=== PATIENT | female | born 1980 | race Two or more races ===

== ENCOUNTER → 2024-04-02 | Emergency (ER) | payer MEDICAID, OTHER | END | disposition left against medical advice (07) | LOC: ER 18:40 | DX: R06.02 Shortness of breath (principal); Z53.21 Procedure and treatment not carried out due to patient leaving prior to being seen by health care provider ==

== ENCOUNTER 2024-05-29 11:54 | Inpatient (IN) | payer MEDICAID ==
[~2024-05-29] VITALS: Ht 162.6 cm; Wt 101.8 kg
--- NOTE | 2024-05-29 12:09 | ED.PDOC ---
History of Present Illness Chief Complaint: Eye Problem Comments pt has hyperthyroidism, and the last 4 days has been noticing her eyes are more prominent. she feels warm, has diarrhea, is restless. her doctor told her to take levothyroxin, which worsened her condition Time Seen by MD: 11:57 Reviewed Notes: Nurses Notes, Medications, Allergies Allergies: Coded Allergies: NO KNOWN ALLERGIES (Unverified , 05/29/24) Information Source: Patient Mode of Arrival: Ambulatory Severity: Moderate Timing: Days Duration: Since onset Prehospital treatment: Other (levothyroxine) Past Medical History PAST MEDICAL HISTORY: Asthma Past Medical History (Other): hyperthyroidism Surgical History: Denies all surgeries ASSISTANT NURSE MANAGER History: No Pertinent ASSISTANT NURSE MANAGER History Family History Family History: Reviewed,noncontributory to illness, No family hx of Cancer, No family hx of DM, No family hx of Heart jacqueline, No family hx of HTN, No family hx ofKidney jacqueline, No family hx of Liver jacqueline, No family hx of Lung jacqueline, No family hx of Stroke Constitutional: denies: chills, diaphoresis, fatigue, fever, malaise, sweats, weakness, others EENTM: reports: others (eyes prominent); denies: blurred vision, double vision, ear bleeding, ear discharge, ear drainage, ear pain, ear ringing, eye pain, eye redness, hearing loss, mouth pain, mouth swelling, nasal discharge, nose bleeding, nose congestion, nose pain, photophobia, tearing, throat pain, throat swelling, voice changes Respiratory: denies: cough, hemoptysis, orthopnea, SOB at rest, shortness of breath, SOB with excertion, stridor, wheezing, others Cardiovascular: reports: palpitations; denies: chest pain, dizzy spells, diaphoresis, Dyspnea on exertion, edema, irregular heart beat, left arm pain, lightheadedness, PND, syncope, others Gastrointestinal: reports: diarrhea; denies: abdomen distended, abdominal pain, blood streaked bowels, constipated, dysphagia, difficulty swallowing, hematemesis, melena, nausea, poor appetite, poor fluid intake, rectal bleeding, rectal pain, vomiting, others Genitourinary: denies: abnormal vagina bleeding, burning, dyspareunia, dysuria, flank pain, frequency, hematuria, incontinence, pain, , vagina discharge, urgency, others Neurological: denies: dizziness, fainting, headache, left sided numbness, left sided weakness, numbness, paresthesia, pre-existing deficit, right sided numbness, right sided weakness, seizure, speech problems, tingling, tremors, weakness, others Musculoskeletal: denies: back pain, gout, joint pain, joint swelling, muscle pain, muscle stiffness, neck pain, others Allergic/Immunocompromised: denies: Difficulty Healing, Frequent Infections, Hives, Itching, others Hematologic/Lymphatic: denies: anemia, blood clots, easy bleeding, easy bruising, swollen glands, others Endocrine: denies: excessive hunger, excessive sweating, excessive thirst, excessive urination, flushing, intolerance to cold, intolerance to heat, unexplained weight gain, unexplained weight loss, others Psychiatric: reports: anxiety; denies: bipolar disorder, depression, hopeless, panic disorder, schizophrenia, sleepless, suicidal, others All Other Systems: Reviewed and Negative Physical Exam General Appearance: No Apparent Distress, Normal, Other (anxious) HEENT: Normal ENT Inspection, Pharynx Normal, TMs Normal, Other (exophthalmosis) Neck: Full Range of Motion, Non-Tender, Normal, Normal Inspection Respiratory: Chest Non-Tender, Lungs Clear, No Accessory Muscle Use, No Respiratory Distress, Normal Breath Sounds Cardiovascular: No Edema, No JVD, No Murmur, No Gallop, Normal Peripheral Pulses, Tachycardia Breast Exam: Deferred Gastrointestinal: No Organomegaly, Non Tender, No Pulsatile Mass, Normal Bowel Sounds, Soft Genitalia: Deferred Pelvic: Deferred Rectal: Deferred Extremities: No calf tenderness, Normal capillary refill, Normal inspection, Normal range of motion, Non-tender, No pedal edema Musculoskeletal : Apperance: Normal Neurologic: Alert, seasonal delivery driver II-XII nml as Tested, No Motor Deficits, Normal Affect, Normal Mood, No Sensory Deficits Cerebellar Function: Normal Reflexes: Normal Skin: Dry, Normal Color, Warm Lymphatic: No Adenopathy Was a procedure done? Was a procedure done?: No Differential Dx Considerations may include: thyroid storm, anxiety, medication noncompliance, thyrotoxicosis, pheochromocytoma X-Ray, Labs, Meds, VS Vital Signs Date Time Temp Pulse Resp B/P (MAP) Pulse Ox O2 Delivery O2 Flow Rate FiO2 05/29/24 12:08 100 05/29/24 12:05 97.2 104 17 140/98 (112) 99 Lab Test 05/29/24 14:14 05/29/24 13:00 Range/Units Troponin I High Sensitivity Pending < 3 L </=34 ng/L White Blood Count 9.4 4.4-10.8 10^3/uL Red Blood Count 5.03 4.0-5.20 10^6/uL Hemoglobin 12.4 12.2-16.2 g/dL Hematocrit 37.6 36.0-46.0 % Mean Corpuscular Volume 74.8 L 80.0-100.0 fL Mean Corpuscular Hemoglobin 24.6 L 28.0-32.0 pg Mean Corpuscular Hemoglobin Concent 32.9 32.0-36.0 g/dL Red Cell Distribution Width 16.6 H 11.8-14.3 % Platelet Count 358 140-450 10^3/uL Mean Platelet Volume 8.3 6.9-10.8 fL Neutrophils (%) (Auto) 63.9 37.0-80.0 % Lymphocytes (%) (Auto) 14.7 10.0-50.0 % Monocytes (%) (Auto) 8.0 0.0-12.0 % Eosinophils (%) (Auto) 12.4 H 0.0-7.0 % Basophils (%) (Auto) 1.0 0.0-2.0 % Neutrophils # (Auto) 6.0 1.6-8.6 10 ^3/uL Lymphocytes # (Auto) 1.4 0.4-5.4 10 ^3/uL Monocytes # (Auto) 0.8 0-1.3 10 ^3/uL Eosinophils # (Auto) 1.2 H 0-0.8 10 ^3/uL Basophils # (Auto) 0.1 0-0.2 10 ^3/uL Nucleated Red Blood Cells 0.1 % Sodium Level 140 136-145 mmol/L Potassium Level 3.9 3.5-5.1 mmol/L Chloride Level 109 H 98-107 mmol/L Carbon Dioxide Level 23 20-31 mmol/L Anion Gap 8 5-15 Blood Urea Nitrogen 16 9-23 mg/dL Creatinine 1.04 H 0.550-1.02 mg/dL Glomerular Filtration Rate Calc 68 >90 mL/min BUN/Creatinine Ratio 15.4 10.0-20.0 Serum Glucose 147 H 74-106 mg/dL Calcium Level 9.7 8.7-10.4 mg/dL Total Bilirubin 0.2 0.2-1.0 mg/dL Aspartate Amino Transferase (AST) 19 13-40 U/L Alanine Aminotransferase (ALT) 23 7-40 U/L Alkaline Phosphatase 86 46-116 U/L Total Protein 7.1 5.7-8.2 g/dL Albumin 4.8 3.2-4.8 g/dL Thyroid Stimulating Hormone (TSH) 0.21 L 0.55-4.78 uIU/mL Free Thyroxine (T4) Calculated Pending Time of 1ST Reevaluation: 14:29 Reevaluation 1ST: Improved Patient Education/Counseling: Diagnosis, Treatment, Prognosis, Need For Follow Up Family Education/Counseling: Diagnosis, Treatment, Prognosis, Need For Follow Up Additional Information pt has symptoms of thyroid storm. she has underlying hyperthyroidism and reportedly is put on levothyroxin. this may have precipitated the exacerbation. she is improved on betablocker. i will add decadron. she has been given ivf support. she will need to be admitted for further treatments Departure 1 Departure Time of Disposition: 14:31 Impression: Primary Impression: Thyroid storm Qualified Codes: E05.91 - Thyrotoxicosis, unspecified with thyrotoxic crisis or storm Disposition: 09 ADMITTED INPATIENT Admit to: [facility] Condition: Serious Discharged With: Self Critical Care Note Critical Care Time?: Yes (1 hr-critical care time only) Critical care comment: due to concerns for deterioration of patient's condition, the care required my highest level of attention and readiness. i assessed the patient's condition, revieweed relavent documents, communicated with medical personnel, ordered the proper tests and treatments, reassed fro results and response to treatments, spoke to family and consultants and formulated a plan of care Stability Stability form required: SHAKILA Newman MD May 29, 2024 12:09
--- NOTE | 2024-05-29 12:52 | DVH ---
CHEST RADIOGRAPH Indication: palpitations Technique: Single frontal view of the chest was obtained COMPARISON: None FINDINGS: Lines and Tubes: None Lungs: Clear Pleura: No effusion. No pneumothorax. Cardiomediastinal contours: Unremarkable Bones: Unremarkable IMPRESSION: 1. No acute disease.
[2024-05-29 13:14] LABS: Basophils # (auto) 0.1 10 ^3/uL (0-0.2); Eosinophils # (auto) 1.2 10 ^3/uL (0-0.8); Monocytes # (auto) 0.8 10 ^3/uL (0-1.3); White Blood Cell 9.4 10^3/uL (4.4-10.8)
[2024-05-29 13:16] LABS: Eosinophils % (auto) 12.4 % (0.0-7.0); Hematocrit 37.6 % (36.0-46.0); Hemoglobin 12.4 g/dL (12.2-16.2); Lymphocytes # (auto) 1.4 10 ^3/uL (0.4-5.4); Lymphocytes % (auto) 14.7 % (10.0-50.0); Mean Corpuscular Hemoglobin 24.6 pg (28.0-32.0); Mean Corpuscular Hgb Conc. 32.9 g/dL (32.0-36.0); Mean Corpuscular Volume 74.8 fL (80.0-100.0); Neutrophils % (auto) 63.9 % (37.0-80.0); Nucleated Red Blood Cells % 0.1 %; Platelet Count (auto) 358 10^3/uL (140-450); Red Blood Cells 5.03 10^6/uL (4.0-5.20); Red Cell Distribution Width 16.6 % (11.8-14.3)
[2024-05-29 13:32] LABS: Alanine Aminotransferase 23 U/L (7-40); Alkaline Phosphatase 86 U/L (46-116); Anion Gap 8 (5-15); Aspartate Aminotransferase 19 U/L (13-40); BUN/Creatinine Ratio 15.4 (10.0-20.0); Blood Urea Nitrogen 16 mg/dL (9-23); Calcium 9.7 mg/dL (8.7-10.4); Carbon Dioxide 23 mmol/L (20-31); Potassium 3.9 mmol/L (3.5-5.1); Sodium 140 mmol/L (136-145)
[2024-05-29 13:33] LABS: Total Protein 7.1 g/dL (5.7-8.2)
[2024-05-29 13:44] LABS: Albumin 4.8 g/dL (3.2-4.8); Bilirubin, Total 0.2 mg/dL (0.2-1.0); Chloride 109 mmol/L (98-107); Glucose 147 mg/dL (74-106)
[2024-05-29] MEDS ORDERED: NITROGLYCERIN 0.4 MG SL TAB SL PRN (19:15)
[2024-05-29] MEDS ORDERED: MORPHINE SULFATE INJ 2 MG/ml SYRG IV PRN (19:15)
[2024-05-29 20:32] VITALS: BP 99/68; PULSE 99; RESP 18; TEMP 98.6; O2SAT 96
[2024-05-29 20:36] VITALS: O2SAT 96
[2024-05-29] MEDS: METOPROLOL TARTRATE 1MG/1ML-5ML VIAL IV ONE (20:48)
[2024-05-29] MEDS: SODIUM CHLORIDE 0.9% 1,000 ML IV ONE (20:57)
[2024-05-29] MEDS: DexAMETHasone SOD PHOS 4 MG/1ML SDV INJ IV ONE (20:57)
[2024-05-29 21:25] VITALS: PULSE 88
[2024-05-29 21:58] VITALS: BP 129/82; PULSE 76; RESP 18; TEMP 97.6; O2SAT 95
[2024-05-29] MEDS: MONTELUKAST SODIUM 10 MG TAB PO SCH (23:22)
[2024-05-29] MEDS: PROPRANOLOL HCL 20 MG TAB PO SCH (23:22)
[2024-05-29] MEDS: TEMAZEPAM 15 MG CAP PO PRN (23:23)
[2024-05-30] VITALS (12 sets, daily range): BP systolic 96–129; BP diastolic 45–82; PULSE 60–104; RESP 16–18; TEMP 97.5–98.2; O2SAT 91–100
--- NOTE | 2024-05-30 02:55 | DVHHP2 ---
History of Present Illness Reason for Visit: Possible hyperthyroid History of Present Illness 43-year-old female presents for evaluation of possible elevated thyroid. Patient reports having elevated thyroid levels approximately a month ago. She states that her provider told her to hold her levothyroxine for one day. Patient has been taking levothyroxine daily since then. Recently she started developing restlessness, insomnia, feeling warm all the time and jittery. Patient denies chest pain or shortness for breath. No other acute complaints reported. Past Medical History Asthma and hypothyroid Past Surgical History Denies Family History Noncontributory Smoke: No ALCOHOL: none Drugs: None Lives: with Family Review of Systems Review of Systems Review of systems are currently negative otherwise addressed in HPI. Allergies: Coded Allergies: NO KNOWN ALLERGIES (Unverified , 05/29/24) Medications Current Medications Medications Dose Ordered Sig/Ashlyn Route Start Time Stop Time Status Last Admin Dose Admin Propranolol HCl 40 mg BID PO 05/29/24 22:00 05/29/24 23:22 40 MG Sertraline HCl 50 mg DAILY PO 05/30/24 10:00 Montelukast Sodium 10 mg HS PO 05/29/24 22:00 05/29/24 23:22 10 MG Albuterol 2.5 mg Q6HPRN PRN NEB 05/29/24 19:15 Temazepam 15 mg QHSP PRN PO 05/29/24 19:15 05/29/24 23:23 15 MG Ondansetron HCl 4 mg Q4HP PRN IV 05/29/24 19:15 Acetaminophen 650 mg Q6HP PRN PO 05/29/24 19:15 Nitroglycerin 0.4 mg Q5MINP PRN SL 05/29/24 19:15 Morphine Sulfate 2 mg Q30M PRN IV 05/29/24 19:15 Exam Vital Signs Vital Signs Date Time Temp Pulse Resp B/P (MAP) Pulse Ox O2 Delivery O2 Flow Rate FiO2 05/30/24 01:00 98.2 75 18 112/77 (89) 94 98.2 05/29/24 21:58 Room Air* 0 21 Exam Gen: 43-year-old female in mild distress. Skin: Warm, dry, normal color and texture, no rash. HEENT: Normocephalic atraumatic, mucous membranes moist and pink. Neck: Cervical and supraclavicular nodes normal without enlargement, trachea is midline, thyroid gland is normal without masses. Pulmonary: Clear to auscultation and percussion bilaterally. Cardiac: Regular rate and rhythm. No murmur Abdomen: Soft, nontender, nondistended, bowel sounds present all 4 quadrants, no guarding, no rigidity, no organomegaly. Extremities: No cyanosis, clubbing, no edema Neuro: Cranial nerves II through XII grossly intact, normal affect and speech, no focal motor deficits. Labs/Xrays ORDERING PHYSICIAN: SHAKILA JOSEPH MD PROCEDURE(s): CXRP - CHEST PORTABLE REASON: palpitations ORDER NUMBER(s): [id number], ACCESSION NUMBER(s): [id number] CHEST RADIOGRAPH Indication: palpitations Technique: Single frontal view of the chest was obtained COMPARISON: None FINDINGS: Lines and Tubes: None Lungs: Clear Pleura: No effusion. No pneumothorax. Cardiomediastinal contours: Unremarkable Bones: Unremarkable IMPRESSION: 1. No acute disease. Labs Test 05/29/24 22:36 05/29/24 14:14 05/29/24 13:00 Range/Units Troponin I High Sensitivity < 3 L </=34 ng/L White Blood Count 9.4 4.4-10.8 10^3/uL Red Blood Count 5.03 4.0-5.20 10^6/uL Hemoglobin 12.4 12.2-16.2 g/dL Hematocrit 37.6 36.0-46.0 % Mean Corpuscular Volume 74.8 L 80.0-100.0 fL Mean Corpuscular Hemoglobin 24.6 L 28.0-32.0 pg Mean Corpuscular Hemoglobin Concent 32.9 32.0-36.0 g/dL Red Cell Distribution Width 16.6 H 11.8-14.3 % Platelet Count 358 140-450 10^3/uL Mean Platelet Volume 8.3 6.9-10.8 fL Neutrophils (%) (Auto) 63.9 37.0-80.0 % Lymphocytes (%) (Auto) 14.7 10.0-50.0 % Monocytes (%) (Auto) 8.0 0.0-12.0 % Eosinophils (%) (Auto) 12.4 H 0.0-7.0 % Basophils (%) (Auto) 1.0 0.0-2.0 % Neutrophils # (Auto) 6.0 1.6-8.6 10 ^3/uL Lymphocytes # (Auto) 1.4 0.4-5.4 10 ^3/uL Monocytes # (Auto) 0.8 0-1.3 10 ^3/uL Eosinophils # (Auto) 1.2 H 0-0.8 10 ^3/uL Basophils # (Auto) 0.1 0-0.2 10 ^3/uL Nucleated Red Blood Cells 0.1 % Sodium Level 140 136-145 mmol/L Potassium Level 3.9 3.5-5.1 mmol/L Chloride Level 109 H 98-107 mmol/L Carbon Dioxide Level 23 20-31 mmol/L Anion Gap 8 5-15 Blood Urea Nitrogen 16 9-23 mg/dL Creatinine 1.04 H 0.550-1.02 mg/dL Glomerular Filtration Rate Calc 68 >90 mL/min BUN/Creatinine Ratio 15.4 10.0-20.0 Serum Glucose 147 H 74-106 mg/dL Calcium Level 9.7 8.7-10.4 mg/dL Total Bilirubin 0.2 0.2-1.0 mg/dL Aspartate Amino Transferase (AST) 19 13-40 U/L Alanine Aminotransferase (ALT) 23 7-40 U/L Alkaline Phosphatase 86 46-116 U/L Total Protein 7.1 5.7-8.2 g/dL Albumin 4.8 3.2-4.8 g/dL Thyroid Stimulating Hormone (TSH) 0.21 L 0.55-4.78 uIU/mL Assessment/Plan Assessment/Plan Assessment Questionable thyroid storm Tachycardia secondary to the above Asthma Plan Admit the patient to telemetry to the hospitalist Endocrinology consultation Hold levothyroxine Thyroid panel pending Continue treatment per orders. Plan discussed with: Patient My Orders Orders - ROMEO JENSEN AGACNChristiana Procedure Category Date Status Time Thyroid Panel LAB 05/29/24 In Process 19:02 Propranolol Hcl PHA 05/29/24 In Process Tablet (Inderal 22:00 Sertraline Hcl PHA 05/30/24 In Process (Zoloft) 10:00 Montelukast Tablet PHA 05/29/24 In Process (Singulair Tablet) 22:00 Albuterol Medneb PHA 05/29/24 In Process (Ventolin Medneb) 19:15 Basic Metabolic Panel LAB 05/30/24 Logged 04:00 Admit ADMIT 05/29/24 Transmitted 19:02 Temazepam (Restoril) PHA 05/29/24 In Process 19:15 Ondansetron Hcl PHA 05/29/24 In Process (Zofran) 19:15 Condition: Fair YANELI 05/29/24 In Process 19:02 Acetaminophen Tablet PHA 05/29/24 In Process (Tylenol Tablet) 19:15 Bedrest With Bathroom YANELI 05/29/24 In Process Privileg 19:02 Nitroglycerin PHA 05/29/24 In Process Sublingual (Ntrostat 19:15 Morphine Sulfate PHA 05/29/24 In Process Injection 19:15 Stat Ekg For Chest [facility] 05/29/24 In Process Pain 19:02 Notify Md Of Changes [facility] 05/29/24 In Process From Base 19:02 Force Dispatcher For [facility] 05/29/24 In Process 24 Hours 19:02 Emergency Dysrhythmia [facility] 05/29/24 In Process Protocol 19:02 Rhythm Strips Once [facility] 05/29/24 In Process Every Shift 19:02 Oxygen By Nasal RT 05/29/24 Transmitted Cannula 19:02 * Endocrinology CONS 05/29/24 Transmitted Consult 19:02 Cardiac DIET 05/30/24 Transmitted Diet-2gna,Lofat,Lochol Breakfast Date of Service: May 29, 2024 Billing Provider: ROMEO JENSEN Common Visit Codes: [id number] INP/OBS CARE (HIGH) ROMEO JENSEN May 30, 2024 02:55
[2024-05-30] MEDS ORDERED: LEVO150T10 PO (03:58)
[2024-05-30] MEDS ORDERED: MONT-8 PO (03:58)
[2024-05-30] MEDS ORDERED: ALBU108A5 INH (03:58)
[2024-05-30] MEDS ORDERED: CETI-120 PO (03:58)
[2024-05-30] MEDS ORDERED: TURM500C3 OR (04:00)
[2024-05-30] MEDS ORDERED: MULT-1066 PO (04:00)
[2024-05-30] MEDS: ALBUTEROL SULF 2.5 MG/0.5ML(0.5%) NEB SOLN NEB PRN (05:54)
[2024-05-30] MEDS: ACETAMINOPHEN 325 MG TAB PO PRN (06:25)
[2024-05-30 07:03] LABS: Sodium 142 mmol/L (136-145)
[2024-05-30 07:04] LABS: Calcium 9.6 mg/dL (8.7-10.4); Carbon Dioxide 23 mmol/L (20-31)
[2024-05-30 07:09] LABS: Anion Gap 8 (5-15); BUN/Creatinine Ratio 12.1 (10.0-20.0); Blood Urea Nitrogen 11 mg/dL (9-23); Chloride 111 mmol/L (98-107); Glucose 133 mg/dL (74-106)
[2024-05-30] MEDS: SERTRALINE HCL 50 MG TAB PO SCH (09:19)
[2024-05-30] MEDS: ONDANSETRON HCL 4 MG/2 ML VIAL IV PRN (09:28)
--- NOTE | 2024-05-30 12:23 | DVHPN2 ---
Subjective Complains of anxiety and insomnia and headache Changes from previous H/P or p: Changes Objective Vitals Vital Signs Date Time Temp Pulse Resp B/P (MAP) Pulse Ox O2 Delivery O2 Flow Rate FiO2 05/30/24 09:19 76 129/82 05/30/24 07:25 97.6 05/30/24 07:12 18 95 05/30/24 05:55 Room Air 0.0 05/30/24 05:55 21 Intake/Output Intake and Output 05/30/24 07:00 Intake Total 400 ml Output Total 1 ml Balance 399 ml Intake Oral 400 ml Output Stool Total 1 ml # Voids 1 General Appearance: Alert, Oriented X3, Cooperative Lungs: Clear to auscultation, Normal air movement Cardiovascular: Regular rate, Normal S1 Abdomen: Normal bowel sounds, Soft, No tenderness Extremities: No edema Medications Current Medications Medications Dose Ordered Sig/Ashlyn Route Start Time Stop Time Status Last Admin Dose Admin Propranolol HCl 40 mg BID PO 05/29/24 22:00 05/30/24 09:19 40 MG Sertraline HCl 50 mg DAILY PO 05/30/24 10:00 05/30/24 09:19 50 MG Montelukast Sodium 10 mg HS PO 05/29/24 22:00 05/29/24 23:22 10 MG Albuterol 2.5 mg Q6HPRN PRN NEB 05/29/24 19:15 05/30/24 05:54 2.5 MG Temazepam 15 mg QHSP PRN PO 05/29/24 19:15 05/29/24 23:23 15 MG Ondansetron HCl 4 mg Q4HP PRN IV 05/29/24 19:15 05/30/24 09:28 4 MG Acetaminophen 650 mg Q6HP PRN PO 05/29/24 19:15 05/30/24 06:25 650 MG Nitroglycerin 0.4 mg Q5MINP PRN SL 05/29/24 19:15 Morphine Sulfate 2 mg Q30M PRN IV 05/29/24 19:15 Laboratory Results Laboratory Tests 05/29/24 13:00 05/30/24 05:40 Chemistry Test 05/29/24 13:00 05/30/24 05:40 Albumin 4.8 g/dL (3.2-4.8) Calcium Level 9.7 mg/dL (8.7-10.4) 9.6 mg/dL (8.7-10.4) Total Protein 7.1 g/dL (5.7-8.2) LFT Test 05/29/24 13:00 Alanine Aminotransferase (ALT) 23 U/L (7-40) Alkaline Phosphatase 86 U/L (46-116) Aspartate Amino Transferase (AST) 19 U/L (13-40) Total Bilirubin 0.2 mg/dL (0.2-1.0) HgA1c, TSH Test 05/29/24 13:00 Thyroid Stimulating Hormone (TSH) 0.21 uIU/mL (0.55-4.78) L Assessment/Plan Assessment/Plan Iatrogenic hyperthyroidism due to levothyroxine overdose Hypothyroidism Asthma Anxiety Insomnia Plan Hold levothyroxine Propranolol Sertraline Temazepam p.r.n. for insomnia Xanax for anxiety Med neb treatments and oxygen as needed Singulair Explained to the patient that we need to hold levothyroxine for now and lower the dose on discharge and then follow up as an outpatient Monitor the patient in the hospital 1 more day Full code Advance directives discussed for 18 minutes Plan discussed with: Patient Date of Service: May 30, 2024 Billing Provider: DEMIAN HUNT MD Common Visit Codes: [id number] INP/OBS CARE(HIGH) Secondary Visit Codes: [id number]-[id number] CARE PLAN 30 MINUTES DEMIAN HUNT MD May 30, 2024 12:23
--- NOTE | 2024-05-30 14:20 | ECG ---
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
--- NOTE | 2024-05-30 15:21 | DVHINCON2 ---
Date of service: May 30, [address] Dickey Reason for Consultation hyperthyroidism History of Present Illness 43 year old female with a history of hyperthyrodism s/p PERLA ablation c/b hypothyroidism on chronic thyroid hormone replacement therapy. Patient states over the past few weeks she has been experiencing intractable fatigue and lack of PO intake. Endorses some intermittent chills and tremulousness as well. Patient chronically tkes levothyroxine daily. Recently about 7-10 days prior to admission she had her dose of levothyroxine reduced to 1 tab 6x/week without significant improvement in symptoms. Notably patient had been enduring a bout of sinusitis in late 03/2024 to early 04/2024 from which she states she feels she is still recovering from. Past Medical History Problems Medical Problems: (1) Thyroid storm Status: Acute Past Surgical History Past Surgical History Medical Problems: (1) Thyroid storm Status: Acute Family History: Patient reports no known family medical history. Allergies: Coded Allergies: NO KNOWN ALLERGIES (Unverified , 05/29/24) Home Meds Reported Medications Multiple Vitamin (Multivitamin Adult) 1 Tab Tab, PO, TAB 05/30/24 Curcuma Longa (Turmeric) Extra (TURMERIC) 500 Mg Cap, OR, CAP 05/30/24 Albuterol Sulfate (Albuterol Sulfate Hfa) 108 Mcg/Act Aer, 1 PUFF INH Q4HPRN PRN for SHORTNESS OF BREATH 05/30/24 Levothyroxine Sodium (Levothyroxine Sodium) 150 Mcg Tab, 125 MCG PO DAILY 05/30/24 Montelukast Sodium (MONTELUKAST SODIUM) 10 Mg Tab, 1 TAB PO DAILY 05/30/24 Cetirizine HCl (Cetirizine Hydrochloride) 10 Mg Tab, 1 TAB PO DAILY 05/30/24 Current Medications Current Medications Medications (Trade) Dose Ordered Sig/Ashlyn Route PRN Reason Start Time Stop Time Status Last Admin Propranolol HCl (Inderal Tablet) 40 mg BID PO 05/29/24 22:00 05/30/24 09:19 Sertraline HCl (Zoloft) 50 mg DAILY PO 05/30/24 10:00 05/30/24 09:19 Montelukast Sodium (Singulair Tablet) 10 mg HS PO 05/29/24 22:00 05/29/24 23:22 Albuterol (Ventolin Medneb) 2.5 mg Q6HPRN PRN NEB SHORTNESS OF BREATH 05/29/24 19:15 05/30/24 05:54 Temazepam (Restoril) 15 mg QHSP PRN PO FOR INSOMNIA 05/29/24 19:15 05/29/24 23:23 Ondansetron HCl (Zofran) 4 mg Q4HP PRN IV NAUSEA / VOMITING 05/29/24 19:15 05/30/24 09:28 Acetaminophen (Tylenol Tablet) 650 mg Q6HP PRN PO PAIN SCALE 1-3 OR TEMP>100.4 05/29/24 19:15 05/30/24 06:25 Nitroglycerin (Ntrostat Sublingual) 0.4 mg Q5MINP PRN SL FOR CHEST PAIN 05/29/24 19:15 Morphine Sulfate 2 mg Q30M PRN IV FOR CHEST PAIN 05/29/24 19:15 Alprazolam (Xanax Tablet) 0.5 mg Q8HPRN PRN PO ANXIETY 05/30/24 12:15 Review of Systems Negative except that which is stated in HPI Vital Signs Vital Signs Date Time Temp Pulse Resp B/P (MAP) Pulse Ox O2 Delivery O2 Flow Rate FiO2 05/30/24 13:00 97.6 62 18 102/60 (74) 96 97.6 05/30/24 10:00 Room Air 0.0 05/30/24 10:00 21 Physical Exam Gen - no acute distress HEENT - exophthalmos, no conjunctival injection Thyroid - minimally palpable, nontender CV - RRR Resp - CTAB Abd - soft, nontender Labs/Diagnostic Data Labs Test 05/30/24 05:40 05/29/24 22:36 05/29/24 14:14 05/29/24 13:00 Range/Units Sodium Level 142 136-145 mmol/L Potassium Level 4.0 3.5-5.1 mmol/L Chloride Level 111 H 98-107 mmol/L Carbon Dioxide Level 23 20-31 mmol/L Anion Gap 8 5-15 Blood Urea Nitrogen 11 9-23 mg/dL Creatinine 0.91 0.550-1.02 mg/dL Glomerular Filtration Rate Calc 80 >90 mL/min BUN/Creatinine Ratio 12.1 10.0-20.0 Serum Glucose 133 H 74-106 mg/dL Calcium Level 9.6 8.7-10.4 mg/dL Troponin I High Sensitivity < 3 L </=34 ng/L White Blood Count 9.4 4.4-10.8 10^3/uL Red Blood Count 5.03 4.0-5.20 10^6/uL Hemoglobin 12.4 12.2-16.2 g/dL Hematocrit 37.6 36.0-46.0 % Mean Corpuscular Volume 74.8 L 80.0-100.0 fL Mean Corpuscular Hemoglobin 24.6 L 28.0-32.0 pg Mean Corpuscular Hemoglobin Concent 32.9 32.0-36.0 g/dL Red Cell Distribution Width 16.6 H 11.8-14.3 % Platelet Count 358 140-450 10^3/uL Mean Platelet Volume 8.3 6.9-10.8 fL Neutrophils (%) (Auto) 63.9 37.0-80.0 % Lymphocytes (%) (Auto) 14.7 10.0-50.0 % Monocytes (%) (Auto) 8.0 0.0-12.0 % Eosinophils (%) (Auto) 12.4 H 0.0-7.0 % Basophils (%) (Auto) 1.0 0.0-2.0 % Neutrophils # (Auto) 6.0 1.6-8.6 10 ^3/uL Lymphocytes # (Auto) 1.4 0.4-5.4 10 ^3/uL Monocytes # (Auto) 0.8 0-1.3 10 ^3/uL Eosinophils # (Auto) 1.2 H 0-0.8 10 ^3/uL Basophils # (Auto) 0.1 0-0.2 10 ^3/uL Nucleated Red Blood Cells 0.1 % Total Bilirubin 0.2 0.2-1.0 mg/dL Aspartate Amino Transferase (AST) 19 13-40 U/L Alanine Aminotransferase (ALT) 23 7-40 U/L Alkaline Phosphatase 86 46-116 U/L Total Protein 7.1 5.7-8.2 g/dL Albumin 4.8 3.2-4.8 g/dL Thyroid Stimulating Hormone (TSH) 0.21 L 0.55-4.78 uIU/mL Free Thyroxine (T4) Calculated 1.61 0.89-1.76 ng/dL Assessment # Postablative hypothyroidism # Tachycardia # Iatrogenic hyperthyroidism Reported history of hyperthyroidism diagnosed at age 14yo requiring PERLA therapy in [facility] now with biochemical and clinical evidence of hyperthyroidism in setting of iatrogenic excess levothyroxine dose. Some contribution of thyroiditis may be implicated here given recent sinusitis as well. - Continue propranolol - Follow up TRAb, TSI, FT4 - Hold levothyroxine. Will restart dosage based on lab results reviewed, tentatively can restart at 75mcg daily - Follow up in outpatient endocrinology clinic within 4 weeks Plan discussed with: Patient KYLIE RAHMAN MD May 30, 2024 15:21
[2024-05-30] MEDS: ALPRAZolam 0.5 MG TAB PO PRN (17:35)
[2024-05-31] VITALS (11 sets, daily range): BP systolic 99–108; BP diastolic 58–75; PULSE 56–80; RESP 15–16; TEMP 97.9–98.9; O2SAT 95–100
[2024-05-31 07:06] LABS: Thyrotropin Receptor Antibody <1.10 IU/L (0.00-1.75)
[2024-05-31 08:06] LABS: Free Thyroxine Index 3.6 (1.2-4.9); Thyroxine (T4) 12.4 ug/dL (4.5-12.0)
--- NOTE | 2024-05-31 10:45 | DVHPN2 ---
Progress Note - Dictate Date Seen: May 31, 2024 Medical Necessity Reason Pt with a Central, PICC or Fol: No Subjective NAEO. Still modest diffuse weakness however improving compared to admission. vital signs Vital Sign Date Time Temp Pulse Resp B/P (MAP) Pulse Ox O2 Delivery O2 Flow Rate FiO2 05/31/24 09:47 56 16 100 05/31/24 09:37 Room Air* 0 21 05/31/24 09:36 103/62 05/31/24 08:34 98.1 98.1 Total Intake and Output 05/30/24 05/30/24 05/31/24 15:00 23:00 07:00 Intake Total 834 ml 1600 ml Balance 834 ml 1600 ml medications Current Medications Medications Dose Ordered Sig/Ashlyn Route Start Time Stop Time Status Last Admin Dose Admin Propranolol HCl 40 mg BID PO 05/29/24 22:00 05/31/24 09:36 40 MG Sertraline HCl 50 mg DAILY PO 05/30/24 10:00 05/31/24 09:23 50 MG Montelukast Sodium 10 mg HS PO 05/29/24 22:00 05/30/24 22:40 10 MG Albuterol 2.5 mg Q6HPRN PRN NEB 05/29/24 19:15 05/31/24 09:37 2.5 MG Temazepam 15 mg QHSP PRN PO 05/29/24 19:15 05/30/24 22:40 15 MG Ondansetron HCl 4 mg Q4HP PRN IV 05/29/24 19:15 05/31/24 09:23 4 MG Acetaminophen 650 mg Q6HP PRN PO 05/29/24 19:15 05/30/24 06:25 650 MG Nitroglycerin 0.4 mg Q5MINP PRN SL 05/29/24 19:15 Morphine Sulfate 2 mg Q30M PRN IV 05/29/24 19:15 Alprazolam 0.5 mg Q8HPRN PRN PO 05/30/24 12:15 05/30/24 17:35 0.5 MG laboratory and microbiology Laboratory Tests 05/30/24 05:40 05/29/24 13:00 Test 05/30/24 05:40 Range/Units Serum Glucose 133 H 74-106 mg/dL Assessment/Plan # Postablative hypothyroidism # Tachycardia # Iatrogenic subclinical hyperthyroidism Reported history of hyperthyroidism diagnosed at age 14yo requiring PERLA therapy in [facility] now with biochemical and clinical evidence of hyperthyroidism in setting of iatrogenic excess levothyroxine dose. Some contribution of thyroiditis may be implicated here given recent sinusitis as well. TRAb negative. - Continue propranolol. Not required upon discharge. - Follow up TSI - Restart levothyroxine 75mcg daily - Follow up in outpatient endocrinology clinic within 1-2 weeks Plan discussed with: Patient KYLIE RAHMAN MD May 31, 2024 10:44
[2024-05-31] MEDS ORDERED: LEVO75TA6 PO (12:20)
--- NOTE | 2024-05-31 12:22 | DVHDS2 ---
Discharge Summary Date of Admission May 29, 2024 at 19:02 Date of Discharge: May 31, 2024 Labs/Diagnostic Data: Laboratory Results Test 05/30/24 05:40 05/29/24 22:36 05/29/24 14:14 05/29/24 13:00 Sodium Level 142 mmol/L (136-145) Potassium Level 4.0 mmol/L (3.5-5.1) Chloride Level 111 mmol/L (98-107) Carbon Dioxide Level 23 mmol/L (20-31) Anion Gap 8 (5-15) Blood Urea Nitrogen 11 mg/dL (9-23) Creatinine 0.91 mg/dL (0.550-1.02) Glomerular Filtration Rate Calc 80 mL/min (>90) BUN/Creatinine Ratio 12.1 (10.0-20.0) Serum Glucose 133 mg/dL (74-106) Calcium Level 9.6 mg/dL (8.7-10.4) Thyrotropin Receptor Antibody <1.10 IU/L (0.00-1.75) Troponin I High Sensitivity < 3 ng/L (</=34) White Blood Count 9.4 10^3/uL (4.4-10.8) Red Blood Count 5.03 10^6/uL (4.0-5.20) Hemoglobin 12.4 g/dL (12.2-16.2) Hematocrit 37.6 % (36.0-46.0) Mean Corpuscular Volume 74.8 fL (80.0-100.0) Mean Corpuscular Hemoglobin 24.6 pg (28.0-32.0) Mean Corpuscular Hemoglobin Concent 32.9 g/dL (32.0-36.0) Red Cell Distribution Width 16.6 % (11.8-14.3) Platelet Count 358 10^3/uL (140-450) Mean Platelet Volume 8.3 fL (6.9-10.8) Neutrophils (%) (Auto) 63.9 % (37.0-80.0) Lymphocytes (%) (Auto) 14.7 % (10.0-50.0) Monocytes (%) (Auto) 8.0 % (0.0-12.0) Eosinophils (%) (Auto) 12.4 % (0.0-7.0) Basophils (%) (Auto) 1.0 % (0.0-2.0) Neutrophils # (Auto) 6.0 10 ^3/uL (1.6-8.6) Lymphocytes # (Auto) 1.4 10 ^3/uL (0.4-5.4) Monocytes # (Auto) 0.8 10 ^3/uL (0-1.3) Eosinophils # (Auto) 1.2 10 ^3/uL (0-0.8) Basophils # (Auto) 0.1 10 ^3/uL (0-0.2) Nucleated Red Blood Cells 0.1 % Total Bilirubin 0.2 mg/dL (0.2-1.0) Aspartate Amino Transferase (AST) 19 U/L (13-40) Alanine Aminotransferase (ALT) 23 U/L (7-40) Alkaline Phosphatase 86 U/L (46-116) Total Protein 7.1 g/dL (5.7-8.2) Albumin 4.8 g/dL (3.2-4.8) Thyroid Stimulating Hormone (TSH) 0.21 uIU/mL (0.55-4.78) Free Thyroxine (T4) Calculated 1.61 ng/dL (0.89-1.76) Free Thyroxine Index 3.6 (1.2-4.9) Thyroxine (T4) 12.4 ug/dL (4.5-12.0) Triiodothyronine (T3) Uptake 29 % (24-39) Other Laboratory Tests 05/30/24 05:40 05/29/24 13:00 Brief Hx & Hospital Course: Final diagnoses: Iatrogenic hyperthyroidism due to levothyroxine overdose Hypothyroidism Asthma Anxiety Insomnia The patient was taking levothyroxine 125 mcg daily Here showed her TSH was low She was having anxiety and tachycardia Now she is feeling somewhat better Discharged home and lower the dose if levothyroxine to 75 mcg daily Follow up with the primary care physician soon as possible Condition at Discharge: Stable Final Diagnosis/Problems List 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 Patient was counseled about treatment plan, medications, possible side effects, patientverbalized understanding. All questions were answered to the best of my ability. 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
[2024-06-01 20:06] LABS: Thyroid Stimulating Immunoglob 0.29 IU/L (0.00-0.55)
== END 2024-05-31 14:28 | disposition home or self-care (01) | DRG 812 ==
LOC: ER 11:54 → TELE 19:02 → TELE-WESTW 21:18
PROVIDERS: ADMIT Nurse Practitioner; ATTEND Internal Medicine Geriatric Medicine
DX: T38.1X1A Poisoning by thyroid hormones and substitutes, accidental (unintentional), initial encounter (principal); E05.81 Other thyrotoxicosis with thyrotoxic crisis or storm; E03.8 Other specified hypothyroidism; G47.00 Insomnia, unspecified; J45.909 Unspecified asthma, uncomplicated; F41.9 Anxiety disorder, unspecified; Z79.899 Other long term (current) drug therapy; Y92.89 Other specified places as the place of occurrence of the external cause
CPT/HCPCS: 36415; 71045; 80048; 80053; 84439; 84443; 84445; 84484; 85025; 93005; 94640; 96361; 96374; 99291; G0378; J1100; J2405

== ENCOUNTER 2024-08-04 15:14 | Inpatient (IN) | payer MEDICAID ==
[~2024-08-04] VITALS: Ht 165.1 cm; Wt 65.0 kg
[~2024-08-04 15:14] MED LIST: ALBU108A5 INH; CETI-120 PO; LEVO75TA6 PO; MONT-8 PO; MULT-1066 PO; TURM500C3 OR
--- NOTE | 2024-08-04 16:18 | ED.PDOC ---
History of Present Illness HPI Comments 43-year-old female came to the ER stating that she has been having dizziness for the past three days. She feels the room is spinning. She is unable to ambulate without difficulty. She does complain of nausea in. Heart rate 99 with blood pressure 101/70 blood sugar 107. She thinks she has thyroid disorder. Denies any other symptoms. Chief Complaint: Dizziness Time Seen by MD: 15:16 Primary Care Provider: JOSIAH Andrews Notes: Nurses Notes, Medications, Allergies Allergies: Coded Allergies: NO KNOWN ALLERGIES (Unverified , 05/29/24) Home Meds Active Scripts Levothyroxine Sodium (Levothyroxine Sodium) 75 Mcg Tab, 1 TAB PO DAILY, #30 TAB 5 Refills Prov:DEMIAN HUNT MD 05/31/24 Reported Medications Multiple Vitamin (Multivitamin Adult) 1 Tab Tab, PO, TAB 05/30/24 Cur[place]uma [place] (Turmeric) Extra (TURMERIC) 500 Mg Cap, OR, CAP 05/30/24 Albuterol Sulfate (Albuterol Sulfate Hfa) 108 Mcg/Act Aer, 1 PUFF INH Q4HPRN PRN for SHORTNESS OF BREATH 05/30/24 Montelukast Sodium (MONTELUKAST SODIUM) 10 Mg Tab, 1 TAB PO DAILY 05/30/24 Cetirizine HCl (Cetirizine Hydrochloride) 10 Mg Tab, 1 TAB PO DAILY 05/30/24 Information Source: Patient Mode of Arrival: Ambulatory Severity: Moderate Timing: Days Duration: Since onset Past Medical History PAST MEDICAL HISTORY: Asthma Surgical History: Denies all surgeries OFFICE DIRECTOR History: No Pertinent OFFICE DIRECTOR History Family History Family History: Reviewed,noncontributory to illness, No family hx of Cancer, No family hx of DM, No family hx of Heart jacqueline, No family hx of HTN, No family hx ofKidney jacqueline, No family hx of Liver jacqueline, No family hx of Lung jacqueline, No family hx of Stroke Constitutional: denies: chills, diaphoresis, fatigue, fever, malaise, sweats, weakness, others EENTM: denies: blurred vision, double vision, ear bleeding, ear discharge, ear drainage, ear pain, ear ringing, eye pain, eye redness, hearing loss, mouth pain, mouth swelling, nasal discharge, nose bleeding, nose congestion, nose pain, photophobia, tearing, throat pain, throat swelling, voice changes, others Respiratory: denies: cough, hemoptysis, orthopnea, SOB at rest, shortness of breath, SOB with excertion, stridor, wheezing, others Cardiovascular: denies: chest pain, dizzy spells, diaphoresis, Dyspnea on exertion, edema, irregular heart beat, left arm pain, lightheadedness, palpitations, PND, syncope, others Gastrointestinal: reports: nausea; denies: abdomen distended, abdominal pain, blood streaked bowels, constipated, diarrhea, dysphagia, difficulty swallowing, hematemesis, melena, poor appetite, poor fluid intake, rectal bleeding, rectal pain, vomiting, others Genitourinary: denies: abnormal vagina bleeding, burning, dyspareunia, dysuria, flank pain, frequency, hematuria, incontinence, pain, , vagina discharge, urgency, others Neurological: reports: dizziness; denies: fainting, headache, left sided numbness, left sided weakness, numbness, paresthesia, pre-existing deficit, right sided numbness, right sided weakness, seizure, speech problems, tingling, tremors, weakness, others Musculoskeletal: denies: back pain, gout, joint pain, joint swelling, muscle pain, muscle stiffness, neck pain, others Integumetry: denies: bruises, change in color, change in hair/nails, dryness, laceration, lesions, lumps, rash, wounds, others Allergic/Immunocompromised: denies: Difficulty Healing, Frequent Infections, Hives, Itching, others Hematologic/Lymphatic: denies: anemia, blood clots, easy bleeding, easy bruising, swollen glands, others Endocrine: denies: excessive hunger, excessive sweating, excessive thirst, excessive urination, flushing, intolerance to cold, intolerance to heat, unexplained weight gain, unexplained weight loss, others Psychiatric: denies: anxiety, bipolar disorder, depression, hopeless, panic disorder, schizophrenia, sleepless, suicidal, others Physical Exam General Appearance: Moderate Distress HEENT: Normal ENT Inspection, Pharynx Normal, TMs Normal Neck: Full Range of Motion, Non-Tender, Normal, Normal Inspection Respiratory: Chest Non-Tender, Lungs Clear, No Accessory Muscle Use, No Respiratory Distress, Normal Breath Sounds Cardiovascular: No Edema, No JVD, No Murmur, No Gallop, Normal Peripheral Pulses, Regular Rate/Rhythm Breast Exam: Deferred Gastrointestinal: No Organomegaly, Non Tender, No Pulsatile Mass, Normal Bowel Sounds, Soft Genitalia: Deferred Pelvic: Deferred Rectal: Deferred Extremities: No calf tenderness, Normal capillary refill, Normal inspection, Normal range of motion, Non-tender, No pedal edema Musculoskeletal : Apperance: Normal Neurologic: Alert, bridge/structure inspection team leader II-XII nml as Tested, No Motor Deficits, Normal Affect, Normal Mood, No Sensory Deficits Cerebellar Function: NOT DONE Reflexes: NOT DONE Skin: Dry, Normal Color, Warm Peripheral Pulses: 3+ Radial (R), 3+ Radial (L) Lymphatic: No Adenopathy Was a procedure done? Was a procedure done?: No EKG EKG : Pulse Rate (adult): 99 [place]yer: Normal Cardiac Rhythm: NSR Differential Dx Considerations may include: Autonomic disorder Electrolyte imbalance X-Ray, Labs, Meds, VS Vital Signs Date Time Temp Pulse Resp B/P (MAP) Pulse Ox O2 Delivery O2 Flow Rate FiO2 08/04/24 15:45 97.8 95 18 101/70 (80) 98 97.8 08/04/24 15:35 99 Lab Test 08/04/24 15:30 Range/Units POC Glucose 102 70-106 mg/dl Patient alert. Complaining of dizziness. Vitals stable. Answering questions. Continues to have dizziness. EKG reviewed does not show any acute changes. Establish intravenous access. Was given fluids. Was given Ativan. CT of the head. Reviewed her history. Explained to the patient. Continue cardiac monitoring. Time of 1ST Reevaluation: 16:16 Reevaluation 1ST: Unchanged Patient Education/Counseling: Diagnosis, Treatment, Prognosis Family Education/Counseling: No Family Present Departure 1 Departure Time of Disposition: 16:17 Impression: Primary Impression: Autonomic disorder Disposition: 09 ADMITTED INPATIENT Admit to: Med Surg Condition: Guarded Critical Care Note Critical Care Time?: No Stability Stability form required: No Heart Score Heart Score: Heart Score Response (Comments) Value History Slightly Suspicious 0 EKG Normal 0 Age <45 0 Risk Factors No known risk factors 0 Troponin N/A [address] MD Aug 04, 2024 16:18
[2024-08-04 16:42] LABS: Basophils # (auto) 0.1 10 ^3/uL (0-0.2); Basophils % (auto) 0.8 % (0.0-2.0); Eosinophils # (auto) 0.5 10 ^3/uL (0-0.8); Eosinophils % (auto) 5.4 % (0.0-7.0); Hematocrit 37.3 % (36.0-46.0); Hemoglobin 12.2 g/dL (12.2-16.2); Lymphocytes # (auto) 2.1 10 ^3/uL (0.4-5.4); Lymphocytes % (auto) 21.4 % (10.0-50.0); Mean Corpuscular Hemoglobin 24.3 pg (28.0-32.0); Mean Corpuscular Hgb Conc. 32.6 g/dL (32.0-36.0); Mean Corpuscular Volume 74.3 fL (80.0-100.0); Monocytes # (auto) 0.7 10 ^3/uL (0-1.3); Neutrophils # (auto) 6.4 10 ^3/uL (1.6-8.6); Neutrophils % (auto) 65.4 % (37.0-80.0); Platelet Count (auto) 374 10^3/uL (140-450); Red Blood Cells 5.02 10^6/uL (4.0-5.20); Red Cell Distribution Width 16.8 % (11.8-14.3); White Blood Cell 9.9 10^3/uL (4.4-10.8)
[2024-08-04 16:49] LABS: Urine Bacteria FEW /hpf (None Seen); Urine Blood Negative /uL (Negative); Urine Clarity Clear (Clear); Urine Color Colorless (Yellow); Urine Protein, UAD Negative (Negative); Urine Specific Gravity 1.006 (1.001-1.035); Urine Squamous Epithelial Cell FEW /hpf (<5); Urine Urobilinogen Normal (Negative)
[2024-08-04 16:52] LABS: Chloride 104 mmol/L (98-107); Potassium 3.8 mmol/L (3.5-5.1); Sodium 138 mmol/L (136-145)
[2024-08-04 16:54] LABS: Anion Gap 9 (5-15); Calcium 9.6 mg/dL (8.7-10.4); Carbon Dioxide 25 mmol/L (20-31)
[2024-08-04 16:59] LABS: BUN/Creatinine Ratio 14.1 (10.0-20.0); Blood Urea Nitrogen 18 mg/dL (9-23)
[2024-08-04 17:02] LABS: Glucose 121 mg/dL (74-106)
[2024-08-04 17:26] LABS: Urine WBC < 1 /HPF (0-5)
--- NOTE | 2024-08-04 17:46 | DVH ---
CT brain without contrast CLINICAL INDICATION: Altered mental status FINDINGS: The study was performed in a multidetector scanner. This study performed taking axial image s from the skull base up to the vertex. Both brain and bone windows are photographed. Dose lowering techniques have been used including automated exposure control and adjustment of mA and /or KV according to patient size. Normal and symmetrical shape and density of brain parenchyma above and below the tentorium is seen. T here is no mass, midline shift or hydrocephalus. No intra/extra-axial collections demonstrated. There is no intracranial hemorrhage. The calvarium is intact. Mucocele in the left maxillary sinus IMPRESSION: 1. No acute intracranial pathology Computed Tomographic Radiation Dosimetry Report: Total CTDI vol = 50.0mGy Total DLP = 801.66mGy-cm Al l CT scans at this medical facility are performed using dose modulation techniques as appropriate to a performed exam including the following: Automated exposure control was utilized; adjustment of the MA and/or KvP according to patient size; and use of iterative reconstruction technique.
[2024-08-04] MEDS: SODIUM CHLORIDE 0.9% 1,000 ML IV ONE (18:11)
[2024-08-04] MEDS: LORazepam 2MG/ML-1ML VIAL IV ONE (18:15)
[2024-08-04] MEDS ORDERED: ONDANSETRON HCL 4 MG/2 ML VIAL IV PRN (18:30)
[2024-08-04] MEDS ORDERED: MORPHINE SULFATE INJ 2 MG/ml SYRG IV PRN (18:30)
[2024-08-04] MEDS ORDERED: NITROGLYCERIN 0.4 MG SL TAB SL PRN (18:30)
--- NOTE | 2024-08-04 18:32 | DVHHP2 ---
History of Present Illness Reason for Visit: dizziness History of Present Illness 43-year-old female with a medical history of asthma and hypothyroidism (on levothyroxine), with no prior surgical history, who presents with three days of dizziness, generalized weakness, and sinus pressure. She reports that her symptoms began gradually and have persisted despite rest. The patient states she was recently seen by her primary care provider for what was diagnosed as a sinus infection with associated facial swelling and pressure, and she was prescribed amoxicillin, which she has been taking for the past week. She now feels worse, reporting persistent sinus pressure, fatigue, dizziness, and malaise. She expresses concern that her thyroid levels may be off, although her last lab work three weeks ago was reportedly normal. She denies any visual changes, chest pain, shortness of breath, fever, or vomiting. She is compliant with her daily levothyroxine. On arrival to the ED, she was hemodynamically stable.Workup in the ED revealed: CBC: Unremarkable, CMP: Unremarkable except for creatinine 1 .28, UA: Trace bacteria nitrates, CT brain: Unremarkable, TSH: Pending, Chest X- ray: Ordered due to new-onset mild chest discomfort, CT sinuses: Ordered to evaluate for sinusitis Ativan was administered in the ED for anxiety-related symptoms, Given persistent symptoms, abnormal labs, and suspicion for acute sinusitis with systemic symptoms, the patient will be admitted for IV antib iotics and further evaluation. Past Medical History Asthma hypothyroidism Past Surgical History Denies surgical history Family History Reviewed, non-contributory to the management of this case. Past Social History The patient lives at home, denies smoking, alcohol or illicit drugs abuse. Review of Systems Constitutional: No: Fever, Chills, Sweats, Weakness, Malaise, Other Eyes: No: Pain, Vision change, Conjunctivae inflammation, Eyelid inflammation, Other, Redness ENT: Other (Sinus pain); No: Ear pain, Ear discharge, Nose pain, Nose discharge, Nose congestion, Mouth pain, Mouth swelling, Throat pain, Throat swelling Respiratory: No: Cough, Dry, Shortness of breath, SOB with excertion, Wheezing, Hemoptysis, Pleuritic Pain, Sputum, Wheezing, Other Cardiovascular: No: Chest Pain, Palpitations, Orthopnea, Paroxysmal Noc. Dyspnea, Edema, Lt Headedness, Other Gastrointestinal: No: Nausea, Vomiting, Abdominal Pain, Diarrhea, Constipation, Melena, Hematochezia, Other Genitourinary: No Dysuria, No Frequency, No Incontinence, No Hematuria, No Retention, No Other Musculoskeletal: No: other, neck pain, shoulder pain, arm pain, back pain, hand pain, leg pain, foot pain Skin: No: Rash, Lesions, Jaundice, Bruising, Other Neurological: Weakness, Other (Acute HEADACHE ); No: Numbness, Incoordination, Change in speech, Confusion, Seizures Allergies: Coded Allergies: NO KNOWN ALLERGIES (Unverified , 05/29/24) Exam Vital Signs Vital Signs Date Time Temp Pulse Resp B/P (MAP) Pulse Ox O2 Delivery O2 Flow Rate FiO2 08/04/24 18:03 99.4 99 16 118/84 (95) 96 99.4 08/04/24 18:03 Room Air General Appearance: Alert, Oriented X3, Cooperative, No acute distress HEENT: Atraumatic, PERRLA, EOMI, Mucous membr. moist/pink, Other (Mild bulging of the eye) Respiratory: Clear to auscultation, Normal air movement Cardiovascular: Regular rate, Normal S1, Normal S2, No murmurs Abdominal: Normal bowel sounds, Soft, No tenderness, No hepatospenomegaly Extremities: No clubbing, No cyanosis, No edema, Normal pulses, No tenderness/swelling Skin: No rashes, No breakdown, No significant lesion Neuro: Normal gait, Normal speech, Strength at 5/5 X4 ext, Normal tone, Sensation intact, Cranial nerves 3-12 NL Psych/Mental Status: Mental status NL, Mood NL Labs/Xrays CT scan of the brain unremarkable I reviewed labs, imaging CT scan abdomen pelvis, EKG and all diagnostic studies on this patient from ED records and the medical chart Labs Test 08/04/24 16:30 08/04/24 15:30 Range/Units White Blood Count 9.9 4.4-10.8 10^3/uL Red Blood Count 5.02 4.0-5.20 10^6/uL Hemoglobin 12.2 12.2-16.2 g/dL Hematocrit 37.3 36.0-46.0 % Mean Corpuscular Volume 74.3 L 80.0-100.0 fL Mean Corpuscular Hemoglobin 24.3 L 28.0-32.0 pg Mean Corpuscular Hemoglobin Concent 32.6 32.0-36.0 g/dL Red Cell Distribution Width 16.8 H 11.8-14.3 % Platelet Count 374 140-450 10^3/uL Mean Platelet Volume 7.8 6.9-10.8 fL Neutrophils (%) (Auto) 65.4 37.0-80.0 % Lymphocytes (%) (Auto) 21.4 10.0-50.0 % Monocytes (%) (Auto) 7.0 0.0-12.0 % Eosinophils (%) (Auto) 5.4 0.0-7.0 % Basophils (%) (Auto) 0.8 0.0-2.0 % Neutrophils # (Auto) 6.4 1.6-8.6 10 ^3/uL Lymphocytes # (Auto) 2.1 0.4-5.4 10 ^3/uL Monocytes # (Auto) 0.7 0-1.3 10 ^3/uL Eosinophils # (Auto) 0.5 0-0.8 10 ^3/uL Basophils # (Auto) 0.1 0-0.2 10 ^3/uL Nucleated Red Blood Cells 0.0 % Urine Color Colorless Yellow Urine Clarity Clear Clear Urine pH 5.0 5.0-9.0 Urine Specific [place] 1.006 1.001-1.035 Urine Protein Negative Negative Urine Ketones Negative Negative Urine Blood Negative Negative /uL Urine Nitrite Negative Negative Urine Bilirubin Negative Negative Urine Urobilinogen Normal Negative mg/dL Urine Leukocyte Esterase Negative Negative /uL Urine RBC <1 0 - 4 /hpf Urine Microscopic WBC < 1 0-5 /HPF Urine Squamous Epithelial Cells Few <5 /hpf Urine Bacteria Few H None Seen /hpf Urine Glucose Normal Normal mg/dL Sodium Level 138 136-145 mmol/L Potassium Level 3.8 3.5-5.1 mmol/L Chloride Level 104 98-107 mmol/L Carbon Dioxide Level 25 20-31 mmol/L Anion Gap 9 5-15 Blood Urea Nitrogen 18 9-23 mg/dL Creatinine 1.28 H 0.550-1.02 mg/dL Glomerular Filtration Rate Calc 53 >90 mL/min BUN/Creatinine Ratio 14.1 10.0-20.0 Serum Glucose 121 H 74-106 mg/dL Calcium Level 9.6 8.7-10.4 mg/dL POC Glucose 102 70-106 mg/dl Assessment/Plan Assessment/Plan 43-year-old female with history of asthma and hypothyroidism, presenting with dizziness, facial pressure, and malaise, likely secondary to acute sinusitis with possible early systemic involvement. acute sinus tenderness likely Acute bacterial sinusitis with facial pressure, dizziness, and fatigue was On amoxicillin x 7 days, without improvement Now with dizziness and generalized weakness Plan: Admit for IV antibiotic therapy ceftriaxone CT sinuses to assess for any abscess or deeper infection Symptom control with antipyretics, ordered morphine as needed for pain acute Dizziness likely multifactorial (viral illness vs. sinus-related vs. anxiety) Persistent over 3 days No focal neurologic findings CT brain normal Plan: Continue hydration and monitor vitals Vestibular suppressant meclizine Ativan PRN if anxiety-driven component persists chronic Hypothyroidism history of, on levothyroxine Concerned about thyroid imbalance Plan: TSH and free T4 ordered Continue home levothyroxine until lab results available Chest discomfort new, non-cardiac features No active chest pain, but mild pressure reported Denies SOB or radiation Plan: Chest X-ray ordered to Rule out lower respiratory involvement (e.g., asthma exacerbation or pneumonia) ordered trop and ECG and vitals ordered duoneb prn since with asthma Mildly elevated creatinine (1.28) Possibly due to dehydration Plan: Monitor renal function Maintain adequate hydration Avoid nephrotoxic meds fu crea in am fen/ppx diet ivf scd no dvt ppx since pt is ambulatory no gi ppx since no hx of gerds or gi bleed DISPOSITION Admit for IV antibiotic therapy and continued monitoring of dizziness and sinus infection symptoms. Monitor TSH, renal function, and symptom progression. Imaging pending to guide further management. Plan discussed with: Patient My Orders Orders - CARLOS SMITH DNP Procedure Category Date Status Time Sinus Without Contrast CT 08/04/24 Verified 18:26 Montelukast Tablet PHA 08/05/24 Verified (Singulair Tablet) 10:00 (Nf) Cetirizine Hcl PHA 08/05/24 Verified (Cetirizine Hydrochl 10:00 (Nf) Levothyroxine PHA 08/05/24 Verified Sodium 10:00 Thyroid Stimulating LAB 08/04/24 Verified Hormone 18:26 Meclizine Tablet PHA 08/04/24 Verified (Antivert Tablet) 18:30 Meclizine Tablet PHA 08/04/24 Verified (Antivert Tablet) 18:30 Chest Xray 1 View XY 08/04/24 Verified 18:26 Test, Urine LAB 08/04/24 Verified 18:26 Admit ADMIT 08/04/24 Verified 18:26 Allergies YANELI 08/04/24 Verified 18:26 Code Status CODE 08/04/24 Verified 18:26 0.9% Ns 1000 Ml PHA 08/04/24 Verified 18:30 Ondansetron Hcl PHA 08/04/24 Verified (Zofran) 18:30 Docusate Sodium PHA 08/04/24 Verified Capsule (Colace 18:30 Complete Blood Count LAB 08/05/24 Verified 04:00 Comprehensive LAB 08/05/24 Verified Metabolic Panel 04:00 Condition: Stable YANELI 08/04/24 Verified 18:26 BRP YANELI 08/04/24 Verified 18:26 Morphine Sulfate PHA 08/04/24 Verified Injection 18:30 Sequential YANELI 08/04/24 Verified Compression Device Nitroglycerin PHA 08/04/24 Verified Sublingual (Ntrostat 18:30 Stat Ekg For Chest YANELI 08/04/24 Verified Pain 18:26 Notify Md Of Changes YANELI 08/04/24 Verified From Base 18:26 Sustainability Analyst For YANELI 08/04/24 Verified 24 Hours 18:26 Emergency Dysrhythmia YANELI 08/04/24 Verified Protocol 18:26 Rhythm Strips Once YANELI 08/04/24 Verified Every Shift 18:26 Oxygen By Nasal RT 08/04/24 Verified Cannula 18:26 Ceftriaxone Ivpb PHA 08/05/24 Verified Rocephin 09:00 Ceftriaxone Ivpb PHA 08/04/24 Verified Rocephin 18:30 Date of Service: Aug 04, 2024 Billing Provider: CARLOS SMITH DNP Common Visit Codes: [id number] INP/OBS CARE (HIGH) CARLOS SMITH DNP Aug 04, 2024 18:32
[2024-08-04] MEDS: MECLIZINE HCL 25 MG TAB PO ONE (18:55)
[2024-08-04] MEDS: cefTRIAXone 1GM/50ML D5W 50 ML IV ONE (18:57)
--- NOTE | 2024-08-04 20:02 | DVH ---
CHEST RADIOGRAPH Indication: sob Technique: Single frontal view of the chest was obtained Comparison: XY CHEST PORTABLE on DOS: 05/29/24 FINDINGS: Lines and Tubes: None Lungs: No focal consolidation. Pleura: No effusion. No pneumothorax. Cardiomediastinal contours: Unremarkable Bones: No acute osseous abnormality. IMPRESSION: 1. No acute cardiopulmonary disease.
--- NOTE | 2024-08-04 20:11 | DVH ---
INDICATION: acute sinus pain EXAM DATE: 08/04/2024 07:30 PM COMPARISON: None TECHNIQUE: CT of the sinuses without intravenous contrast. RADIATION DOSE: CTDIvol: 66.38 mGy, DLP: 920.26 mGy*cm FINDINGS: There is a mucus retention cyst in left maxillary sinus. Right maxillary sinus is clear. Frontal sinu ses are clear. Ethmoid air cells are clear. Sphenoid sinuses are clear. Ostiomeatal complexes are pat ent bilaterally. Cribriform plate and lamina papyracea are intact. Orbits appear unremarkable. Visual ized paranasal sinuses and mastoid air cells are clear. Visualized brain appears unremarkable. Soft tissues and osseous structures are unremarkable. IMPRESSION: Mucus retention cyst in left maxillary sinus. Otherwise unremarkable study.
[2024-08-04 20:23] VITALS: PULSE 90; RESP 16; O2SAT 98
[2024-08-04] MEDS: IPRATROPIUM BROM 0.5 MG/2.5ML INH SOL NEB PRN (20:23)
[2024-08-04] MEDS: ALBUTEROL SULF 2.5 MG/0.5ML(0.5%) NEB SOLN NEB PRN (20:23)
[2024-08-04 20:25] VITALS: BP 118/84; PULSE 90; RESP 16; TEMP 99.4; O2SAT 98
[2024-08-04 20:29] VITALS: PULSE 88; RESP 16; O2SAT 100
[2024-08-04] MEDS: SODIUM CHLORIDE 0.9% 1,000 ML IV SCH (21:06)
[2024-08-05] VITALS (12 sets, daily range): BP systolic 106–132; BP diastolic 68–82; PULSE 72–96; RESP 16–19; TEMP 98–98.7; O2SAT 94–100
[2024-08-05] MEDS: LEVOTHYROXINE SODIUM 25 MCG TAB PO SCH (07:00)
[2024-08-05 07:14] LABS: Basophils # (auto) 0 10 ^3/uL (0-0.2); Eosinophils # (auto) 0.5 10 ^3/uL (0-0.8); Eosinophils % (auto) 6.8 % (0.0-7.0); Lymphocytes # (auto) 1.7 10 ^3/uL (0.4-5.4); White Blood Cell 7.6 10^3/uL (4.4-10.8)
[2024-08-05 07:16] LABS: Basophils % (auto) 0.4 % (0.0-2.0); Hematocrit 36.6 % (36.0-46.0); Hemoglobin 11.6 g/dL (12.2-16.2); Lymphocytes % (auto) 22.3 % (10.0-50.0); Mean Corpuscular Hemoglobin 23.6 pg (28.0-32.0); Mean Corpuscular Hgb Conc. 31.7 g/dL (32.0-36.0); Mean Corpuscular Volume 74.5 fL (80.0-100.0); Monocytes # (auto) 0.5 10 ^3/uL (0-1.3); Monocytes % (auto) 6.9 % (0.0-12.0); Neutrophils # (auto) 4.9 10 ^3/uL (1.6-8.6); Neutrophils % (auto) 63.6 % (37.0-80.0); Nucleated Red Blood Cells % 0.1 %; Platelet Count (auto) 309 10^3/uL (140-450); Red Blood Cells 4.91 10^6/uL (4.0-5.20); Red Cell Distribution Width 16.8 % (11.8-14.3)
[2024-08-05 07:30] LABS: Alanine Aminotransferase 16 U/L (7-40); Albumin 4.1 g/dL (3.2-4.8); Alkaline Phosphatase 82 U/L (46-116); Anion Gap 9 (5-15); Aspartate Aminotransferase 13 U/L (13-40); BUN/Creatinine Ratio 16.5 (10.0-20.0); Bilirubin, Total 0.3 mg/dL (0.2-1.0); Blood Urea Nitrogen 15 mg/dL (9-23); Calcium 9.1 mg/dL (8.7-10.4); Carbon Dioxide 25 mmol/L (20-31); Chloride 106 mmol/L (98-107); Glucose 92 mg/dL (74-106); Sodium 140 mmol/L (136-145); Total Protein 6.2 g/dL (5.7-8.2)
[2024-08-05 07:32] LABS: Potassium 3.4 mmol/L (3.5-5.1)
--- NOTE | 2024-08-05 08:23 | ECG ---
[facility] Test Date: 2024-08-04 Test Time: 15:33:35 Pat Name: CARRIE FERRER Department: ED Room: 0212 A Gender: F Solution Analyst: KRISTOPHER : 1980 Requested By: TRENT LANE Order Number: [id number] Reading MD: Dawson Zaragoza Measurements Intervals [place] Rate: 99 P: 47 IA: 133 QRS: 84 QRSD: 88 T: 21 QT: 345 QTc: 443 Interpretive Statements Sinus rhythm Electronically Signed On 08-05-2024 13:45:42 PDT by Dawson Zaragoza Please click the below link to view image of tracing.
[2024-08-05] MEDS: cefTRIAXone 1GM/50ML D5W 50 ML IV SCH (08:38)
[2024-08-05] MEDS: CETIRIZINE HYDROCHLORIDE PO SCH (10:00)
[2024-08-05 10:03] LABS: Rapid Influenza A Negative (Negative); Rapid Influenza B Negative (Negative)
[2024-08-05 10:04] LABS: COVID19 ANTIGEN SOFIA FIA NEGATIVE (NEGATIVE)
[2024-08-05] MEDS: POTASSIUM EFFERVESENT TAB 25 MEQ PO ONE (10:09)
[2024-08-05] MEDS: ENOXAPARIN SOD 40 MG/0.4 ML SYRINGE SC SCH (10:11)
[2024-08-05] MEDS: MONTELUKAST SODIUM 10 MG TAB PO SCH (10:11)
[2024-08-05 11:03] LABS: Amphetamine Screen, Urine Neg (NEGATIVE); Barbiturate Scree,Urine Neg (NEGATIVE); Benzodiazephine Screen, Urine Neg (NEGATIVE); Cannabinoid Screen, Urine Neg (NEGATIVE); Cocaine Screen, Urine Neg (NEGATIVE); Opiate Scree,Urine Neg (NEGATIVE); Phencyclidine Screen, Urine Neg (NEGATIVE)
[2024-08-05] MEDS: MECLIZINE HCL 25 MG TAB PO PRN (11:44)
[2024-08-05] MEDS: MECLIZINE HCL 25 MG TAB PO ONE (12:00)
[2024-08-05] MEDS: HYDROcodone-ACET 5/325MG TAB PO PRN (13:58)
[2024-08-05] MEDS: methylPREDNISolone SOD SUCC 125 MG/2 ML VL IV ONE (15:39)
--- NOTE | 2024-08-05 15:58 | DVHPNRES ---
Progress Note Date Seen: Aug 05, 2024 Resident Creating Document: FRANK APONTE SUHAIL Has the PT tested + for MRSA If YES, has PT been informed?: No Medical Necessity Reason Pt with a Central, PICC or Fol: No Subjective Review of Systems 43-year-old female with past medical history of asthma, hypothyroidism (status post radioactive iodine ablation due to hyperthyroidism), depression came to the hospital due to dizziness since 4 days. She has dizziness all the time but increase while lying down straight on the bed. Per patient she recently had sinusitis, and given amoxicillin by PCP. She also reports generalized weakness, nausea, fatigue, malaise, shortness of breaths, body cold and head hotness and pressure sensation upon maxillary sinus. She denies fever, chest pain, nausea, vomiting, or any recent bowel and bladder habit changes. PMHx: asthma, hypothyroidism (status post radioactive iodine ablation due to hyperthyroidism) the depression PSHx: No significant Family history: Noncontributory Social history: Patient lives with the family at home, denies smoking or any other drug use. Home medication: Fluticasone and levothyroxine 75 mcg Allergic history: No known allergy Objective vital signs Vital Sign Date Time Temp Pulse Resp B/P (MAP) Pulse Ox O2 Delivery O2 Flow Rate FiO2 08/05/24 13:19 98.0 96 19 124/82 (96) 97 98.0 08/05/24 10:30 Room Air 0.0 08/05/24 10:30 21 Total Intake and Output 08/04/24 08/04/24 08/05/24 15:00 23:00 07:00 Intake Total 0 ml Balance 0 ml medications Current Medications Medications Dose Ordered Sig/Ashlyn Route Start Time Stop Time Status Last Admin Dose Admin Montelukast Sodium 10 mg DAILY PO 08/05/24 10:00 08/05/24 10:11 10 MG Patient Own Medication 1 tab DAILY PO 08/05/24 10:00 Levothyroxine Sodium 75 mcg QAM PO 08/05/24 07:00 08/05/24 07:00 75 MCG Sodium Chloride 1,000 ml @ 120 mls/hr Q8H20M IV 08/04/24 18:30 08/05/24 11:39 120 MLS/HR Ondansetron HCl 4 mg Q4HP PRN IV 08/04/24 18:30 Docusate Sodium 100 mg BIDPRN PRN PO 08/04/24 18:30 Morphine Sulfate 2 mg Q4HPRN PRN IV 08/04/24 18:30 Nitroglycerin 0.4 mg Q5MINP PRN SL 08/04/24 18:30 Ceftriaxone Sodium 50 ml @ 100 mls/hr DAILY@09 IV 08/05/24 09:00 08/05/24 08:38 100 MLS/HR Albuterol 2.5 mg Q4HPRN PRN NEB 08/04/24 19:15 08/05/24 10:29 2.5 MG Ipratropium [place] 0.5 mg Q4HPRN PRN NEB 08/04/24 19:15 08/05/24 10:29 0.5 MG Enoxaparin Sodium 40 mg DAILY SC 08/05/24 10:00 08/05/24 10:11 40 MG Meclizine HCl 25 mg Q8HPRN PRN PO 08/05/24 12:00 Acetaminophen/ Hydrocodone Bitart 1 tab Q4HPRN PRN PO 08/05/24 12:00 08/05/24 13:58 1 TAB Methylprednisolone Sodium Succinate 40 mg DAILY IV 08/06/24 10:00 Examination General Appearance: Alert, Oriented X3, Cooperative, No acute distress HEENT: Bilateral eye bulging Respiratory: Clear to auscultation, Normal air movement Cardiovascular: Regular rate, Normal S1, Normal S2, No murmurs, no chest wall tenderness Abdominal: Normal bowel sounds, Soft, No tenderness, No hepatospenomegaly, No masses Extremities: No clubbing, No cyanosis, No edema, Normal pulses, No tenderness/swelling Skin: No rashes, No breakdown, No significant lesion Neuro: Normal gait, Normal speech, Strength at 5/5 X4 ext, Normal tone, Sensation intact, Cranial nerves 3-12 NL, Reflexes 2+ Psych/Mental Status: Mental status NL, Mood NL laboratory and microbiology Laboratory Tests 08/05/24 06:30 Test 08/05/24 06:30 Range/Units Serum Glucose 92 74-106 mg/dL Labs and/or images reviewed: Labs reviewed by me, Image(s) reviewed by me Problem List/Assessment/Plan Problem List/Assessment/Plan Dizziness Acute sinusitis Bilateral eyes bulging/exophthalmos hypothyroidism (status post radioactive iodine ablation due to hyperthyroidism) Scan shows no intracranial abnormalities Sinus CT scan shows, mucus retention cyst in left maxillary sinus Empiric antibiotic, Rocephin Meclizine IV steroids Continue home meds Asthma Breathing treatment PRN FANTA likely via min Hypokalemia, repleted IV fluid DIET: Regular diet DVT PROPHYLAXIS: Lovenox GI PROPHYLAXIS:: Protonix CODE STATUS: Goal of care discussed for more than 18 minutes, full code DISPOSITION: Med/surge Patient's status and plan discussed with the patient. Case discussed with Dr. Gallegos. Plan discussed with: Patient, Other (RN) My Orders My Orders Orders - FRANK APONTE Procedure Category Date Status Time Enoxaparin Sodium PHA 08/05/24 In Process (Lovenox) 10:00 Meclizine Tablet PHA 08/05/24 In Process (Antivert Tablet) 12:00 Regular Diet DIET 08/05/24 Transmitted Lunch Hydrocodone-Acet PHA 08/05/24 In Process 5/325mg Tab ([place] 12:00 Methylprednisolone PHA 08/06/24 In Process Sod Succ (Solu Medrol 10:00 Date of Service: Aug 05, 2024 Billing Provider: JOANNA COHEN MD Common Visit Codes: [id number] INP/OBS CARE(HIGH) FRANK APONTE RESDILARY Aug 05, 2024 15:57 JOANNA COHEN MD Aug 10, 2024 01:12
[2024-08-06] VITALS (10 sets, daily range): BP systolic 116–136; BP diastolic 63–84; PULSE 69–93; RESP 17–19; TEMP 97.7–98.8; O2SAT 96–99
[2024-08-06 05:51] LABS: Eosinophils # (auto) 0 10 ^3/uL (0-0.8); Eosinophils % (auto) 0.1 % (0.0-7.0); Hematocrit 35.4 % (36.0-46.0); Monocytes # (auto) 0.2 10 ^3/uL (0-1.3); Red Blood Cells 4.72 10^6/uL (4.0-5.20)
[2024-08-06 05:53] LABS: Basophils # (auto) 0.1 10 ^3/uL (0-0.2); Basophils % (auto) 0.6 % (0.0-2.0); Hemoglobin 11.3 g/dL (12.2-16.2); Lymphocytes % (auto) 11.5 % (10.0-50.0); Mean Corpuscular Volume 75.1 fL (80.0-100.0); Monocytes % (auto) 2.4 % (0.0-12.0); Neutrophils # (auto) 7.6 10 ^3/uL (1.6-8.6); Neutrophils % (auto) 85.4 % (37.0-80.0); Platelet Count (auto) 347 10^3/uL (140-450); Red Cell Distribution Width 16.6 % (11.8-14.3); White Blood Cell 8.9 10^3/uL (4.4-10.8)
[2024-08-06 06:07] LABS: Alanine Aminotransferase 14 U/L (7-40); Albumin 4.2 g/dL (3.2-4.8); Alkaline Phosphatase 80 U/L (46-116); Anion Gap 8 (5-15); BUN/Creatinine Ratio 18.6 (10.0-20.0); Blood Urea Nitrogen 16 mg/dL (9-23); Calcium 9.2 mg/dL (8.7-10.4); Carbon Dioxide 24 mmol/L (20-31); Potassium 4.2 mmol/L (3.5-5.1); Sodium 141 mmol/L (136-145); Total Protein 6.4 g/dL (5.7-8.2)
[2024-08-06 06:14] LABS: Aspartate Aminotransferase 11 U/L (13-40); Bilirubin, Total 0.2 mg/dL (0.2-1.0); Chloride 109 mmol/L (98-107); Glucose 134 mg/dL (74-106)
[2024-08-06] MEDS: DOCUSATE SOD 100 MG CAP PO PRN (08:59)
[2024-08-06] MEDS: methylPREDNISolone SOD SUCC 125 MG/2 ML VL IV SCH (09:01)
[2024-08-06] MEDS: guaiFENesin-DM 100/10mg/5ml SYR PO PRN (11:56)
--- NOTE | 2024-08-06 13:11 | DVHPN2 ---
Subjective Continues having dizziness Reviewed: H&P Changes from previous H/P or p: No Changes General: Per HPI Eyes: No Pain, No Vision change, No Conjunctivae inflammation, No Eyelid inflammation, No Other, No Redness ENT: No Ear pain, No Ear discharge, No Nose pain, No Nose discharge, No Nose congestion, No Mouth pain, No Mouth swelling, No Throat pain, No Throat swelling; Other (Sinus pain) Cardiovascular: No Chest Pain, No Palpitations, No Orthopnea, No Paroxysmal Noc. Dyspnea, No Edema, No Lt Headedness, No Other Respiratory: No Cough, No Dry, No Shortness of breath, No SOB with excertion, No Wheezing, No Hemoptysis, No Pleuritic Pain, No Sputum, No Other Gastrointestinal: No Nausea, No Vomiting, No Abdominal Pain, No Diarrhea, No Constipation, No Melena, No Hematochezia, No Other Genitourinary: No Dysuria, No Frequency, No Incontinence, No Hematuria, No Retention, No Other Musculoskeletal: No other, No neck pain, No shoulder pain, No arm pain, No back pain, No hand pain, No leg pain, No foot pain Skin: No Rash, No Lesions, No Jaundice, No Bruising, No Other Objective Vitals Vital Signs Date Time Temp Pulse Resp B/P (MAP) Pulse Ox O2 Delivery O2 Flow Rate FiO2 08/06/24 09:06 97.7 81 17 117/71 (86) 97 97.7 08/06/24 08:05 Room Air* 0 21 Intake/Output Intake and Output 08/06/24 07:00 Intake Total 1820 ml Output Total 750 ml Balance 1070 ml Intake Oral 930 ml IV Total 890 ml Output Urine Total 750 ml # Voids 2 Exam General Appearance: Alert, Oriented X3, Cooperative, No acute distress HEENT: Bilateral eye bulging Respiratory: Clear to auscultation, Normal air movement Cardiovascular: Regular rate, Normal S1, Normal S2, No murmurs, no chest wall tenderness Abdominal: Normal bowel sounds, Soft, No tenderness, No hepatospenomegaly, No masses Extremities: No clubbing, No cyanosis, No edema, Normal pulses, No tenderness/swelling Skin: No rashes, No breakdown, No significant lesion Neuro: Normal gait, Normal speech, Strength at 5/5 X4 ext, Normal tone, Sensation intact, Cranial nerves 3-12 NL, Reflexes 2+, decreased sensation left face Psych/Mental Status: Mental status NL, Mood NL Medications Current Medications Medications Dose Ordered Sig/Ashlyn Route Start Time Stop Time Status Last Admin Dose Admin Montelukast Sodium 10 mg DAILY PO 08/05/24 10:00 08/06/24 09:00 10 MG Patient Own Medication 1 tab DAILY PO 08/05/24 10:00 Levothyroxine Sodium 75 mcg QAM PO 08/05/24 07:00 08/06/24 05:54 75 MCG Ondansetron HCl 4 mg Q4HP PRN IV 08/04/24 18:30 Docusate Sodium 100 mg BIDPRN PRN PO 08/04/24 18:30 08/06/24 08:59 100 MG Morphine Sulfate 2 mg Q4HPRN PRN IV 08/04/24 18:30 Nitroglycerin 0.4 mg Q5MINP PRN SL 08/04/24 18:30 Ceftriaxone Sodium 50 ml @ 100 mls/hr DAILY@09 IV 08/05/24 09:00 08/06/24 08:56 100 MLS/HR Albuterol 2.5 mg Q4HPRN PRN NEB 08/04/24 19:15 08/05/24 18:46 2.5 MG Ipratropium [place] 0.5 mg Q4HPRN PRN NEB 08/04/24 19:15 08/05/24 18:46 0.5 MG Enoxaparin Sodium 40 mg DAILY SC 08/05/24 10:00 08/06/24 09:01 40 MG Meclizine HCl 25 mg Q8HPRN PRN PO 08/05/24 12:00 Acetaminophen/ Hydrocodone Bitart 1 tab Q4HPRN PRN PO 08/05/24 12:00 08/06/24 09:00 1 TAB Methylprednisolone Sodium Succinate 40 mg DAILY IV 08/06/24 10:00 08/06/24 09:01 40 MG Guaifenesin/ Dextromethorphan 10 ml Q4HP PRN PO 08/06/24 11:30 08/06/24 11:56 10 ML Laboratory Results Laboratory Tests 08/06/24 04:50 Chemistry Test 08/06/24 04:50 Albumin 4.2 g/dL (3.2-4.8) Calcium Level 9.2 mg/dL (8.7-10.4) Total Protein 6.4 g/dL (5.7-8.2) LFT Test 08/06/24 04:50 Alanine Aminotransferase (ALT) 14 U/L (7-40) Alkaline Phosphatase 80 U/L (46-116) Aspartate Amino Transferase (AST) 11 U/L (13-40) L Total Bilirubin 0.2 mg/dL (0.2-1.0) Urinalysis Test 08/04/24 16:30 08/05/24 10:00 Urine Color Colorless (Yellow) Urine Clarity Clear (Clear) Urine pH 5.0 (5.0-9.0) Urine Specific [place] 1.006 (1.001-1.035) Urine Protein Negative (Negative) Urine Ketones Negative (Negative) Urine Blood Negative /uL (Negative) Urine Nitrite Negative (Negative) Urine Bilirubin Negative (Negative) Urine Urobilinogen Normal mg/dL (Negative) Urine Leukocyte Esterase Negative /uL (Negative) Urine RBC <1 /hpf (0 - 4) Urine Microscopic WBC < 1 /HPF (0-5) Urine Squamous Epithelial Cells Few /hpf (<5) Urine Bacteria Few /hpf (None Seen) H Urine Glucose Normal mg/dL (Normal) Urine Test Negative (Negative) Labs and/or images reviewed: Labs reviewed by me, Image(s) reviewed by me Assessment/Plan Assessment/Plan 08/06 continuous being dizzy. Now having some left numbness on face. Meclizine failed. Her facial fullness from the sinusitis is improving. She also has a cough. Could be possibly pneumonia. We will add azithromycin. We will have school full mean, we will add Ativan scheduled q.6 hours p.o.. Unable to test Mery-Hallpike due to dizziness. With the new finding of left face numb decreased sensation we will need MRI brain to rule out stroke. Otherwise no other FND. Plan to test orthostatics, MRI brain,. For medications continue ceftriaxone, add azithromycin, continue prednisone Solu-Medrol, continue meclizine, continue Ativan p.o.,. Continue diet. Swallow function okay. Dizziness Acute sinusitis Bilateral eyes bulging/exophthalmos hypothyroidism (status post radioactive iodine ablation due to hyperthyroidism) Orthostatic possible, need to rule out Rule out stroke Scan shows no intracranial abnormalities Sinus CT scan shows, mucus retention cyst in left maxillary sinus Empiric antibiotic, Rocephin Meclizine IV steroids Continue home meds Brain MRI Orthostatics Asthma Breathing treatment PRN FANTA vmn Hypokalemia, repleted IV fluid DIET: Regular diet DVT PROPHYLAXIS: Lovenox GI PROPHYLAXIS:: Protonix CODE STATUS: Goal of care discussed for more than 18 minutes, full code DISPOSITION: Med/surge Plan discussed with: Patient My Orders Orders - JOANNA COHEN MD Procedure Category Date Status Time Guaifenesin-Dextromet PHA 08/06/24 In Process Liquid (Robitussin 11:30 Azithromycin 500mg/ PHA 08/07/24 Verified 250ml (Zithromax 50 10:00 Orthostatic Vital ORDERS 08/06/24 Verified Signs 13:01 Lorazepam Tablet PHA 08/06/24 Verified (Ativan Tablet) 18:00 Brain Head Wo Contrast MRI 08/06/24 Verified 13:01 Date of Service: Aug 06, 2024 Billing Provider: JOANNA COHEN MD Common Visit Codes: [id number] INP/OBS CARE(HIGH) JOANNA COHEN MD Aug 06, 2024 13:11
[2024-08-06] MEDS: MECLIZINE HCL 25 MG TAB PO PRN (14:12)
[2024-08-06] MEDS: AZITHROMYCIN 500MG/ 250ML 250 ML IV ONE (14:14)
--- NOTE | 2024-08-06 15:05 | DVH ---
MRI BRAIN HEAD WO CONTRAST INDICATION: r/o stroke : 43 old Female r/o stroke EXAM DATE: 08/06/2024 01:37 PM COMPARISON: 08/04 PROCEDURE: Using a 1.5 Jovita scanner, multisequence multiplanar imaging of the brain was obtained.q FINDINGS: The brainshows normal morphology and signal characteristics. No abnormal T2 hyperintensity, diffusion restriction, or susceptibility hypointensity is present. The ventricles are normal in size . The midline structures are intact. The major intracranial flow voids are present. Maxillary left si nus mucus retention cyst or polyp. The aerated spaces are otherwise normal. The orbital contents and extracranial soft tissues appear normal. IMPRESSION: No acute abnormal MRI findings of the brain.
[2024-08-06] MEDS: LORazepam 0.5 MG TAB PO SCH (17:00)
[2024-08-07 01:00] VITALS: BP_SYST 114; BP_SYST 131; BP_SYST 99; BP_DIAS 53; BP_DIAS 72; BP_DIAS 79; PULSE 72; PULSE 73; PULSE 78; RESP 19; TEMP 97.7; O2SAT 97; O2SAT 98; O2SAT 99
[2024-08-07 05:00] VITALS: BP 117/61; PULSE 73; RESP 19; TEMP 98; O2SAT 97
[2024-08-07 06:26] LABS: Basophils # (auto) 0 10 ^3/uL (0-0.2); Eosinophils # (auto) 0.1 10 ^3/uL (0-0.8); Lymphocytes # (auto) 2.7 10 ^3/uL (0.4-5.4); Lymphocytes % (auto) 18.9 % (10.0-50.0); Monocytes # (auto) 0.8 10 ^3/uL (0-1.3); Neutrophils % (auto) 74.9 % (37.0-80.0)
[2024-08-07 06:30] LABS: Basophils % (auto) 0.2 % (0.0-2.0); Eosinophils % (auto) 0.4 % (0.0-7.0); Hematocrit 33.7 % (36.0-46.0); Hemoglobin 10.8 g/dL (12.2-16.2); Mean Corpuscular Hemoglobin 23.9 pg (28.0-32.0); Mean Corpuscular Volume 74.9 fL (80.0-100.0); Monocytes % (auto) 5.6 % (0.0-12.0); Neutrophils # (auto) 10.7 10 ^3/uL (1.6-8.6); Platelet Count (auto) 323 10^3/uL (140-450); Red Cell Distribution Width 17.1 % (11.8-14.3); White Blood Cell 14.2 10^3/uL (4.4-10.8)
[2024-08-07 06:54] LABS: Alanine Aminotransferase 11 U/L (7-40); Albumin 3.9 g/dL (3.2-4.8); Alkaline Phosphatase 73 U/L (46-116); Anion Gap 7 (5-15); BUN/Creatinine Ratio 18.8 (10.0-20.0); Blood Urea Nitrogen 16 mg/dL (9-23); Calcium 9.1 mg/dL (8.7-10.4); Carbon Dioxide 26 mmol/L (20-31); Glucose 90 mg/dL (74-106); Potassium 4.2 mmol/L (3.5-5.1); Sodium 142 mmol/L (136-145)
[2024-08-07 06:58] LABS: Aspartate Aminotransferase 9 U/L (13-40); Bilirubin, Total 0.2 mg/dL (0.2-1.0); Chloride 109 mmol/L (98-107)
[2024-08-07 07:30] VITALS: O2SAT 96
[2024-08-07 09:00] VITALS: BP_SYST 113; BP_SYST 129; BP_SYST 132; BP_DIAS 73; BP_DIAS 78; BP_DIAS 83; PULSE 65; PULSE 71; PULSE 72; RESP 16; TEMP 97.8; O2SAT 98; O2SAT 99
[2024-08-07] MEDS: AZITHROMYCIN 500MG/ 250ML 250 ML IV SCH (09:54)
[2024-08-07] MEDS ORDERED: DOXY1CAP58 PO (12:49)
[2024-08-07] MEDS ORDERED: PRED20TA2 PO (12:49)
[2024-08-07] MEDS ORDERED: MECL1TAB42 PO (12:49)
--- NOTE | 2024-08-07 12:56 | DVHDS2 ---
Discharge Summary Date of Admission Aug 04, 2024 at 18:26 Date of Discharge: Aug 07, 2024 Labs/Diagnostic Data: Laboratory Results Test 08/07/24 05:52 08/05/24 10:00 08/05/24 09:00 08/05/24 06:30 White Blood Count 14.2 10^3/uL (4.4-10.8) Red Blood Count 4.50 10^6/uL (4.0-5.20) Hemoglobin 10.8 g/dL (12.2-16.2) Hematocrit 33.7 % (36.0-46.0) Mean Corpuscular Volume 74.9 fL (80.0-100.0) Mean Corpuscular Hemoglobin 23.9 pg (28.0-32.0) Mean Corpuscular Hemoglobin Concent 32.0 g/dL (32.0-36.0) Red Cell Distribution Width 17.1 % (11.8-14.3) Platelet Count 323 10^3/uL (140-450) Mean Platelet Volume 8.1 fL (6.9-10.8) Neutrophils (%) (Auto) 74.9 % (37.0-80.0) Lymphocytes (%) (Auto) 18.9 % (10.0-50.0) Monocytes (%) (Auto) 5.6 % (0.0-12.0) Eosinophils (%) (Auto) 0.4 % (0.0-7.0) Basophils (%) (Auto) 0.2 % (0.0-2.0) Neutrophils # (Auto) 10.7 10 ^3/uL (1.6-8.6) Lymphocytes # (Auto) 2.7 10 ^3/uL (0.4-5.4) Monocytes # (Auto) 0.8 10 ^3/uL (0-1.3) Eosinophils # (Auto) 0.1 10 ^3/uL (0-0.8) Basophils # (Auto) 0 10 ^3/uL (0-0.2) Nucleated Red Blood Cells 0.0 % Sodium Level 142 mmol/L (136-145) Potassium Level 4.2 mmol/L (3.5-5.1) Chloride Level 109 mmol/L (98-107) Carbon Dioxide Level 26 mmol/L (20-31) Anion Gap 7 (5-15) Blood Urea Nitrogen 16 mg/dL (9-23) Creatinine 0.85 mg/dL (0.550-1.02) Glomerular Filtration Rate Calc 87 mL/min (>90) BUN/Creatinine Ratio 18.8 (10.0-20.0) Serum Glucose 90 mg/dL (74-106) Calcium Level 9.1 mg/dL (8.7-10.4) Total Bilirubin 0.2 mg/dL (0.2-1.0) Aspartate Amino Transferase (AST) 9 U/L (13-40) Alanine Aminotransferase (ALT) 11 U/L (7-40) Alkaline Phosphatase 73 U/L (46-116) Total Protein 6.0 g/dL (5.7-8.2) Albumin 3.9 g/dL (3.2-4.8) Urine Test Negative (Negative) Urine Opiates Screen Neg (NEGATIVE) Urine Fentanyl Screen Neg (NEGATIVE) Urine Barbiturates Screen Neg (NEGATIVE) Urine Phencyclidine Screen Neg (NEGATIVE) Urine Amphetamines Screen Neg (NEGATIVE) Urine Benzodiazepines Screen Neg (NEGATIVE) Urine Cocaine Screen Neg (NEGATIVE) Urine Cannabinoids Screen Neg (NEGATIVE) Influenza Type A Antigen Negative (Negative) Influenza Type B Antigen Negative (Negative) SARS-CoV-2 Antigen (Rapid) Negative (NEGATIVE) Magnesium Level 2.3 mg/dL (1.6-2.6) Test 08/04/24 19:50 08/04/24 16:30 08/04/24 15:30 Troponin I High Sensitivity < 3 ng/L (</=34) Free Thyroxine (T4) Calculated 1.55 ng/dL (0.89-1.76) Urine Color Colorless (Yellow) Urine Clarity Clear (Clear) Urine pH 5.0 (5.0-9.0) Urine Specific [place] 1.006 (1.001-1.035) Urine Protein Negative (Negative) Urine Ketones Negative (Negative) Urine Blood Negative /uL (Negative) Urine Nitrite Negative (Negative) Urine Bilirubin Negative (Negative) Urine Urobilinogen Normal mg/dL (Negative) Urine Leukocyte Esterase Negative /uL (Negative) Urine RBC <1 /hpf (0 - 4) Urine Microscopic WBC < 1 /HPF (0-5) Urine Squamous Epithelial Cells Few /hpf (<5) Urine Bacteria Few /hpf (None Seen) Urine Glucose Normal mg/dL (Normal) Thyroid Stimulating Hormone (TSH) 2.10 uIU/mL (0.55-4.78) POC Glucose 102 mg/dl (70-106) Other Laboratory Tests 08/07/24 05:52 Brief Hx & Hospital Course: Patient admitted for ongoing dizziness resulting in inability to carry out daily functions and decreased p.o. tolerance. CT head negative, MRI negative stroke ruled out. Mery-Hallpike unable to be done. Patient has exophthalmos questionable Graves may have been untreated. Defer that to primary child daycare worker. CT head does make comment on fullness of sinus and she was tenderness. This is likely acute,? Possibly chronic, sinusitis, we treated with steroids and antibiotics which made her get relief. There is also questionable chronic migraines, possible acute episode. No temporal artery tenderness. Patient continues to improve. She also has a dry cough. She has some vague left face numbness and stroke was ruled out with MRI as mentioned. Continuing antibiotics, tolerating p.o., ambulating. Acute concerning reasons for admission ruled out. Stable for discharge as per plan below. Diagnosis: Dizziness due to Acute sinusitis Bilateral eyes bulging/exophthalmos Acute on chronic migraine, possible hypothyroidism (status post radioactive iodine ablation due to hyperthyroidism) Orthostatic possible, ruled out Ruled out stroke asthma Plan: -take doxycycline 100 mg twice daily for next 5 days Take meclizine as needed for dizziness Take prednisone 40 mg (2 tablets of 20 mg tablets), take for next 3 days Follow up with PCP, child daycare worker, ENT specialist for ongoing dizziness and headaches. Continue taking other home medications not mentioned above Condition at Discharge: Fair Final Diagnosis/Problems List Dizziness due to Acute sinusitis Bilateral eyes bulging/exophthalmos Acute on chronic migraine, possible hypothyroidism (status post radioactive iodine ablation due to hyperthyroidism) Orthostatic possible, ruled out Ruled out stroke asthma Discharge Disposition: Home Discharge Instruct/Medications Diet: Regular Activity: No Restrictions, As Tolerated Follow Up/Referral: pcp, carly, stuart Medications: Below Discharge Statement: "Patient was advised to return to the ER or call 911 if any headaches, dizziness, shortness of breath, chest pain, abdominal pain, bleeding, fevers, or worsening of medical condition. Patient was counseled about treatment plan, medications, possible side effects, patientverbalized understanding. All questions were answered to the best of my ability. This discharge took greater then 30 minutes in planning, reviewing documentation, counseling the patient, and discussing with other team members." Date of Service: Aug 07, 2024 Billing Provider: JOANNA COHEN MD Common Visit Codes: [id number] DISCH DAY >30min JOANNA COHEN MD Aug 07, 2024 12:56
[2024-08-07 13:00] VITALS: BP_SYST 106; BP_SYST 112; BP_SYST 116; BP_DIAS 69; BP_DIAS 78; BP_DIAS 87; PULSE 67; PULSE 81; PULSE 88; RESP 16; TEMP 97.8; O2SAT 97
[2024-08-07 14:39] VITALS: BP 106/69; PULSE 67; RESP 16; TEMP 36.6; O2SAT 97
[2024-08-07] MEDS ORDERED: PROC10TA6 PO (15:35)
== END 2024-08-07 15:45 | disposition home or self-care (01) | DRG 113 ==
LOC: ER 15:14 → OVERFLOW 18:26 → CENTRAL 18:31
PROVIDERS: ADMIT Student in an Organized Health Care Education/Training Program; ATTEND Student in an Organized Health Care Education/Training Program
DX: J01.90 Acute sinusitis, unspecified (principal); N17.0 Acute kidney failure with tubular necrosis; G90.89 Other disorders of autonomic nervous system; H05.20 Unspecified exophthalmos; J45.909 Unspecified asthma, uncomplicated; E05.90 Thyrotoxicosis, unspecified without thyrotoxic crisis or storm; E03.9 Hypothyroidism, unspecified; Z20.822 Contact with and (suspected) exposure to COVID-19; G43.909 Migraine, unspecified, not intractable, without status migrainosus; E87.6 Hypokalemia; M27.40 Unspecified cyst of jaw; Z79.899 Other long term (current) drug therapy
CPT/HCPCS: 36415; 70450; 70486; 70551; 71045; 80048; 80053; 80307; 81001; 81025; 82962; 83735; 84439; 84443; 84484; 85025; 87426; 87804; 93005; 94640; 96361; 96374; G0378